=== PATIENT | male | born 1995 | race Caucasian/White ===

== ENCOUNTER 2018-02-27 09:08 | Outpatient (CLI) | payer OTHER | END 2018-02-27 09:48 | disposition home or self-care (01) | LOC: LAB 09:08 | DX: D50.8 Other iron deficiency anemias (principal); D51.8 Other vitamin B12 deficiency anemias; R97.0 Elevated carcinoembryonic antigen [CEA]; C62.90 Malignant neoplasm of unspecified testis, unspecified whether descended or undescended; N39.0 Urinary tract infection, site not specified; D68.8 Other specified coagulation defects; R97.8 Other abnormal tumor markers ==

== ENCOUNTER 2018-03-03 10:04 | Outpatient (CLI) | payer OTHER | END 2018-03-03 10:14 | disposition home or self-care (01) | LOC: TOM 10:04 | DX: C62.11 Malignant neoplasm of descended right testis (principal) ==

== ENCOUNTER 2018-03-19 07:49 | Outpatient (CLI) | payer OTHER | END 2018-03-19 08:03 | disposition home or self-care (01) | LOC: LAB 07:49 | DX: C62.11 Malignant neoplasm of descended right testis (principal) ==

== ENCOUNTER 2018-03-22 13:05 | Outpatient (CLI) | payer OTHER | END 2018-03-22 13:06 | disposition home or self-care (01) | LOC: LAB 13:05 | DX: E29.1 Testicular hypofunction (principal) ==

== ENCOUNTER 2018-03-29 13:28 | Outpatient (CLI) | payer OTHER | END 2018-03-29 13:37 | disposition home or self-care (01) | LOC: LAB 13:28 | DX: E29.1 Testicular hypofunction (principal); C62.11 Malignant neoplasm of descended right testis ==

== ENCOUNTER 2018-05-25 08:47 | Outpatient (CLI) | payer OTHER | END 2018-05-25 08:52 | disposition home or self-care (01) | LOC: LAB 08:47 | DX: C62.11 Malignant neoplasm of descended right testis (principal); D50.8 Other iron deficiency anemias; I10 Essential (primary) hypertension; R97.0 Elevated carcinoembryonic antigen [CEA]; D51.0 Vitamin B12 deficiency anemia due to intrinsic factor deficiency; D51.1 Vitamin B12 deficiency anemia due to selective vitamin B12 malabsorption with proteinuria ==

== ENCOUNTER 2018-05-25 09:46 | Outpatient (CLI) | payer OTHER | END 2018-05-25 15:53 | disposition home or self-care (01) | LOC: RAD 09:46 | DX: C62.11 Malignant neoplasm of descended right testis (principal) ==

== ENCOUNTER 2018-05-28 08:04 | Outpatient (CLI) | payer OTHER | END 2018-05-28 09:27 | disposition home or self-care (01) | LOC: TOM 08:04 | DX: C62.11 Malignant neoplasm of descended right testis (principal) ==

== ENCOUNTER 2018-07-19 11:18 | Outpatient (CLI) | payer OTHER | END 2018-07-19 11:31 | disposition home or self-care (01) | LOC: LAB 11:18 | DX: C62.11 Malignant neoplasm of descended right testis (principal); D50.8 Other iron deficiency anemias; D51.8 Other vitamin B12 deficiency anemias; I10 Essential (primary) hypertension; R97.0 Elevated carcinoembryonic antigen [CEA]; R91.8 Other nonspecific abnormal finding of lung field ==

== ENCOUNTER 2018-08-23 08:04 | Outpatient (CLI) | payer OTHER | END 2018-08-23 09:02 | disposition home or self-care (01) | LOC: LAB 08:04 | DX: C62.11 Malignant neoplasm of descended right testis (principal); D50.8 Other iron deficiency anemias; D51.8 Other vitamin B12 deficiency anemias; I10 Essential (primary) hypertension; K90.89 Other intestinal malabsorption; E03.8 Other specified hypothyroidism; R97.0 Elevated carcinoembryonic antigen [CEA] ==

== ENCOUNTER 2018-08-27 08:40 | Outpatient (CLI) | payer OTHER | END 2018-08-27 08:51 | disposition home or self-care (01) | LOC: TOM 08:40 | DX: C62.11 Malignant neoplasm of descended right testis (principal) ==

== ENCOUNTER 2018-09-01 17:36 | Outpatient (CLI) | payer OTHER | END 2018-09-01 17:59 | disposition home or self-care (01) | LOC: RAD 17:36 | DX: C62.11 Malignant neoplasm of descended right testis (principal) ==

== ENCOUNTER 2018-12-03 08:10 | Outpatient (CLI) | payer OTHER | END 2018-12-03 08:29 | disposition home or self-care (01) | LOC: LAB 08:10 | DX: C62.11 Malignant neoplasm of descended right testis (principal); D51.3 Other dietary vitamin B12 deficiency anemia; D51.0 Vitamin B12 deficiency anemia due to intrinsic factor deficiency; R97.0 Elevated carcinoembryonic antigen [CEA]; R97.8 Other abnormal tumor markers ==

== ENCOUNTER 2019-02-21 08:36 | Outpatient (CLI) | payer OTHER | END 2019-02-21 15:00 | disposition home or self-care (01) | LOC: LAB 08:36 | DX: C62.11 Malignant neoplasm of descended right testis (principal); D50.8 Other iron deficiency anemias; D51.8 Other vitamin B12 deficiency anemias; I10 Essential (primary) hypertension; R97.0 Elevated carcinoembryonic antigen [CEA]; R97.8 Other abnormal tumor markers ==

== ENCOUNTER 2019-02-25 08:05 | Outpatient (CLI) | payer OTHER | END 2019-02-25 08:08 | disposition home or self-care (01) | LOC: TOM 08:05 | DX: C62.90 Malignant neoplasm of unspecified testis, unspecified whether descended or undescended (principal) ==

== ENCOUNTER 2019-03-08 08:07 | Outpatient (CLI) | payer OTHER | END 2019-03-08 08:11 | disposition home or self-care (01) | LOC: RAD 08:07 | DX: C62.11 Malignant neoplasm of descended right testis (principal) ==

== ENCOUNTER → 2019-07-16 07:12 | Outpatient (CLI) | payer OTHER | END | disposition home or self-care (01) | LOC: LAB 07:12 | DX: D50.8 Other iron deficiency anemias (principal); I10 Essential (primary) hypertension; E78.2 Mixed hyperlipidemia; C62.11 Malignant neoplasm of descended right testis; D51.8 Other vitamin B12 deficiency anemias; E03.8 Other specified hypothyroidism; R97.0 Elevated carcinoembryonic antigen [CEA]; R97.8 Other abnormal tumor markers ==

== ENCOUNTER 2019-08-29 11:57 | Outpatient (CLI) | payer OTHER | END 2019-08-29 15:00 | disposition home or self-care (01) | LOC: LAB 11:57 | DX: N20.0 Calculus of kidney (principal) ==

== ENCOUNTER 2019-09-02 08:08 | Outpatient (CLI) | payer OTHER | END 2019-09-02 08:24 | disposition home or self-care (01) | LOC: TOM 08:08 | DX: C62.11 Malignant neoplasm of descended right testis (principal) ==

== ENCOUNTER → 2019-11-01 08:41 | Outpatient (CLI) | payer OTHER | END | disposition home or self-care (01) | LOC: LAB 08:41 | DX: D50.8 Other iron deficiency anemias (principal); I10 Essential (primary) hypertension; R97.0 Elevated carcinoembryonic antigen [CEA]; R97.8 Other abnormal tumor markers; E29.1 Testicular hypofunction; C62.11 Malignant neoplasm of descended right testis; R77.2 Abnormality of alphafetoprotein ==

== ENCOUNTER → 2020-01-30 09:18 | Outpatient (CLI) | payer OTHER | END | disposition home or self-care (01) | LOC: LAB 09:18 | PROVIDERS: ATTEND Internal Medicine Hematology & Oncology | DX: D50.8 Other iron deficiency anemias (principal); I10 Essential (primary) hypertension; R97.0 Elevated carcinoembryonic antigen [CEA]; R97.8 Other abnormal tumor markers; E29.1 Testicular hypofunction; R77.2 Abnormality of alphafetoprotein; D51.8 Other vitamin B12 deficiency anemias; C62.11 Malignant neoplasm of descended right testis ==

== ENCOUNTER 2020-02-02 07:30 | Outpatient (CLI) | payer OTHER | END 2020-02-02 07:32 | disposition home or self-care (01) | LOC: TOM 07:30 | PROVIDERS: ATTEND Internal Medicine Hematology & Oncology | DX: C62.11 Malignant neoplasm of descended right testis (principal) ==

== ENCOUNTER 2020-05-05 09:42 | Outpatient (CLI) | payer OTHER | END 2020-05-05 09:53 | disposition home or self-care (01) | LOC: LAB 09:42 | PROVIDERS: ATTEND Internal Medicine Hematology & Oncology | DX: D50.8 Other iron deficiency anemias (principal); I10 Essential (primary) hypertension; R97.8 Other abnormal tumor markers; R97.0 Elevated carcinoembryonic antigen [CEA]; E29.1 Testicular hypofunction; R77.2 Abnormality of alphafetoprotein; C62.11 Malignant neoplasm of descended right testis ==

== ENCOUNTER 2020-08-15 09:29 | Outpatient (CLI) | payer OTHER | END 2020-08-15 09:35 | disposition home or self-care (01) | LOC: LAB 09:29 | PROVIDERS: ATTEND Internal Medicine Hematology & Oncology | DX: D50.8 Other iron deficiency anemias (principal); I10 Essential (primary) hypertension; R74.02 Elevation of levels of lactic acid dehydrogenase [LDH]; K76.89 Other specified diseases of liver; D51.8 Other vitamin B12 deficiency anemias; R97.0 Elevated carcinoembryonic antigen [CEA]; R97.8 Other abnormal tumor markers; E29.1 Testicular hypofunction; R77.2 Abnormality of alphafetoprotein; E55.9 Vitamin D deficiency, unspecified; C62.11 Malignant neoplasm of descended right testis ==

== ENCOUNTER 2020-08-20 07:25 | Outpatient (CLI) | payer OTHER | END 2020-08-20 08:26 | disposition home or self-care (01) | LOC: MRI 07:25 | PROVIDERS: ATTEND Internal Medicine Hematology & Oncology | DX: C62.11 Malignant neoplasm of descended right testis (principal) | CPT/HCPCS: 72196; 74182 ==

== ENCOUNTER 2021-09-12 09:03 | Outpatient (CLI) | payer OTHER | END 2021-09-12 09:09 | disposition home or self-care (01) | LOC: RAD 09:03 | PROVIDERS: ATTEND Internal Medicine Hematology & Oncology | DX: C62.11 Malignant neoplasm of descended right testis (principal) ==

== ENCOUNTER → 2023-08-19 12:27 | Outpatient (CLI) | payer OTHER ==
[2023-08-19 13:40] LABS: HEMATOCRIT 44.4 % (39.0-48.0); HEMOGLOBIN 15.1 g/dL (13-16.00); MEAN CELL VOLUME 90.1 fL (80.0-100.00); MEAN CORPUSCULAR HEMOGLOBIN 30.7 pg (27.00-32.0); PLATELET COUNT 292 K/uL (150-450); RED BLOOD COUNT 4.93 M/uL (4.00-6.00); RED CELL DISTRIBUTION WIDTH 13.3 % (11.5-14.5)
[2023-08-19 14:22] LABS: ALBUMIN 4.6 gm/dL (3.4-5.0); ALKALINE PHOSPHATASE 86 U/L (50-136); ALT/SGPT 30 U/L (12-78); ANION GAP 5 (10.0-20.0); AST/SGOT 15 U/L (15-37); BILIRUBIN TOTAL 0.51 mg/dL (0.3-1.2); BLOOD UREA NITROGEN 13 mg/dL (7-18); BUN CREA RATIO 14 (7.0-25.0); CALCIUM 9.4 mg/dL (8.5-10.1); CARBON DIOXIDE 33 mEq/L (21-32); CHLORIDE 104 mmol/L (98-107); CREATININE SERUM 0.96 mg/dL (0.70-1.30); GFR 93.96; GLOBULINA 3.6 G/DL (2.4-3.5); GLUCOSE FASTING 88 mg/dL (65-100); LDH 150 U/L (87-241); OSMOLALITY SERUM 275 MOSM/KG (275-295); POTASSIUM 4.03 mEq/L (3.5-5.1); SODIUM 138 mmol/L (136-145); TOTAL PROTEIN 8.2 gm/dL (6.4-8.2)
[2023-08-19 14:23] LABS: HCG QUANTITATIVE < 1 mUI/mL (0-2)
[2023-08-19 14:47] LABS: FOLIC ACID 19.42 ng/ml (4.78-20); VITAMIN D3 25 HYDROXY 33.55 ng/ml (30-120)
[2023-08-21 10:11] LABS: ALPHA FETO PROTEIN 2.3 ng/mL (0.0-5.7)
== END | disposition home or self-care (01) ==
LOC: LAB 12:27
PROVIDERS: ATTEND Internal Medicine Hematology & Oncology
DX: D50.8 Other iron deficiency anemias (principal); I10 Essential (primary) hypertension; R74.02 Elevation of levels of lactic acid dehydrogenase [LDH]; K76.89 Other specified diseases of liver; D51.8 Other vitamin B12 deficiency anemias; E55.9 Vitamin D deficiency, unspecified; R97.0 Elevated carcinoembryonic antigen [CEA]; E29.1 Testicular hypofunction; R77.2 Abnormality of alphafetoprotein; E03.9 Hypothyroidism, unspecified

== ENCOUNTER 2023-08-21 08:09 | Outpatient (CLI) | payer OTHER | END 2023-08-21 08:24 | disposition home or self-care (01) | LOC: TOM 08:09 | PROVIDERS: ATTEND Internal Medicine Hematology & Oncology | DX: C62.11 Malignant neoplasm of descended right testis (principal) ==

== ENCOUNTER 2024-10-17 08:54 | Outpatient (CLI) | payer OTHER | END 2024-10-17 08:59 | disposition home or self-care (01) | LOC: TOM 08:54 | PROVIDERS: ATTEND Internal Medicine Hematology & Oncology | DX: C62.11 Malignant neoplasm of descended right testis (principal); D51.3 Other dietary vitamin B12 deficiency anemia ==